=== PATIENT | male | born 1995 | race Caucasian/White ===

== ENCOUNTER 2018-05-06 07:51 | Emergency (ER) | payer BC, OTHER ==
--- NOTE | 2018-05-06 08:56 | ED ---
General Adult HPI - General Chief complaint: ENT Stated complaint: fb in throat Time Seen by Provider: 05/06/18 08:16 Source: patient, RN notes reviewed Mode of arrival: ambulatory Limitations: no limitations - History of Present Illness Initial comments: Patient is 23-year-old male presenting to the emergency room today with chief complaint of a sore throat over the last 3 days. Patient does admit that hurts when he swallows. Patient does admit to some congestion and rhinorrhea. Denies any cough. Denies any known fever. Denies any other complaints. Patient denies any recent fever, chills, shortness of breath, chest pain, back pain, abdominal pain, nausea or vomiting, numbness or tingling, headaches or visual changes, or any other complaints. - Related Data Previous Rx's Medication Instructions Recorded Amoxicillin 500 mg PO Q8H 10 Days day 05/06/18 Allergies Allergy/AdvReac Type Severity Reaction Status Date / Time No Known Allergies Allergy Verified 05/06/18 08:29 Review of Systems ROS Statement: Those systems with pertinent positive or pertinent negative responses have been documented in the HPI. ROS Other: All systems not noted in ROS Statement are negative. Past Medical History Past Medical History: Eye Disorder Additional Past Medical History / Comment(s): HX HEART MURMUR -HAD OPEN HEART, JUVENILE POLYPOSIS History of Any Multi-Drug Resistant Organisms: None Reported Past Surgical History: Bowel Resection, Coronary Bypass/CABG Additional Past Surgical History / Comment(s): BOWEL RESECTION @ AGE 14- REMOVED LOWER PART OF COLON, OPEN HEART -HEART MURMUR Past Anesthesia/Blood Transfusion Reactions: No Reported Reaction Past Psychological History: ADD/ADHD Smoking Status: Current every day smoker Past Alcohol Use History: None Reported Past Drug Use History: Marijuana - Past Family History Brother(s) Additional Family Medical History / Comment(s): JUVENILE POLYPOSIS- ADD/ADHD Sister(s) Additional Family Medical History / Comment(s): JUVENILE POLYPOSIS Mother Additional Family Medical History / Comment(s): JUVENILE POLYPOSIS General Exam - General Exam Comments Initial Comments: General: The patient is awake and alert, in no distress, and does not appear acutely ill. Ears, nose, mouth and throat: There are moist mucous membranes and no oral lesions. Positive exudate to the posterior pharynx with 2+ tonsils. Uvula midline. Swallows without any difficulty. Neck: The neck is supple. Cardiovascular: There is a regular rate and rhythm. No murmur, rub or gallop is appreciated. Respiratory: Lungs are clear to auscultation, respirations are non-labored, breath sounds are equal. No wheezes, stridor, rales, or rhonchi. Musculoskeletal: Normal ROM, no tenderness. Neurological: A&O x 3. CN II-XII intact, There are no obvious motor or sensory deficits. Coordination appears grossly intact. Speech is normal. Skin: Skin is warm and dry and no rashes or lesions are noted. Psychiatric: Cooperative, appropriate mood & affect, normal judgment. Limitations: no limitations Course Vital Signs 05/06/18 07:56 Temperature 98.3 F Pulse Rate 90 Respiratory 18 Rate Blood Pressure 124/87 O2 Sat by Pulse 97 Oximetry Medical Decision Making - Medical Decision Making Patient does have positive exudate with 2+ tonsils. Uvula midline. Patient swallows without difficulty. Patient will be treated for a strep infection started on amoxicillin. Advised follow-up over the next 2 days return if any symptoms increase or worsen. Disposition Clinical Impression: Acute pharyngitis Disposition: HOME SELF-CARE Condition: Good Instructions: Pharyngitis (ED) Additional Instructions: Please use medication as discussed. Please follow-up with family doctor in the next 2 days of symptoms have not improved. Please return to emergency room if the symptoms increase or worsen or for any other concerns. Prescriptions: Amoxicillin 500 mg PO Q8H 10 Days day Is patient prescribed a controlled substance at d/c from ED?: No Referrals: None,Stated [Primary Care Provider] - 1-2 days Time of Disposition: 08:54
[2018-05-06 09:09] VITALS: BP 125/83; PULSE 85; RESP 20; TEMP 97.3
== END 2018-05-06 09:05 | disposition home or self-care (01) ==
LOC: EC 07:51
DX: J02.9 Acute pharyngitis, unspecified (principal); F17.200 Nicotine dependence, unspecified, uncomplicated; Z95.1 Presence of aortocoronary bypass graft
CPT/HCPCS: 99282

== ENCOUNTER 2021-11-04 08:15 | Emergency (ER) | payer OTHER ==
[2021-11-04 08:21] VITALS: BP 128/87; RESP 16; TEMP 98
[2021-11-04] MEDS ORDERED: LIDOCAINE 1% INJ 10MG/ML (5 ML VIAL-PF) SQ ONE (08:30)
[2021-11-04] MEDS ORDERED: ACET/COD 300 MG/30 MG STARTER PACK 6 TAB BTL PO STA (08:50)
[2021-11-04] MEDS ORDERED: PENICILLIN G BENZATHINE 1,200,000 UNIT/2 ML SYRINGE IM STA (08:52)
--- NOTE | 2021-11-04 08:52 | ED ---
General Adult HPI - General Chief complaint: Dental/Oral Stated complaint: dental pain, facial swelling Time Seen by Provider: 11/04/21 08:24 Source: patient, RN notes reviewed Mode of arrival: ambulatory Limitations: no limitations - History of Present Illness Initial comments: Patient is a pleasant 26-year-old male presenting to the emergency department with concern for ental problem. Patient had mild symptoms yesterday, worsening swelling. Patient does have discomfort. Left upper tooth. Patient does have known tooth problem. Patient now has some swelling. No fever. No dyspnea. Patient is tolerating oral intake. - Related Data Previous Rx's Medication Instructions Recorded Amoxicillin 500 mg PO Q8H 10 Days day 05/06/18 Penicillin V Potassium [Pen Vee K] 500 mg PO QID #40 tablet 11/04/21 Allergies Allergy/AdvReac Type Severity Reaction Status Date / Time No Known Allergies Allergy Verified 11/04/21 08:21 Review of Systems ROS Statement: Those systems with pertinent positive or pertinent negative responses have been documented in the HPI. ROS Other: All systems not noted in ROS Statement are negative. Constitutional: Denies: fever Eyes: Denies: eye pain ENT: Reports: dental pain Respiratory: Denies: cough Cardiovascular: Denies: chest pain Endocrine: Denies: fatigue Gastrointestinal: Denies: abdominal pain Genitourinary: Denies: urgency Past Medical History Past Medical History: Eye Disorder Additional Past Medical History / Comment(s): HX HEART MURMUR -HAD OPEN HEART, JUVENILE POLYPOSIS History of Any Multi-Drug Resistant Organisms: None Reported Past Surgical History: Bowel Resection, Coronary Bypass/CABG Additional Past Surgical History / Comment(s): BOWEL RESECTION @ AGE 14- REMOVED LOWER PART OF COLON, OPEN HEART -HEART MURMUR Past Anesthesia/Blood Transfusion Reactions: No Reported Reaction Past Psychological History: ADD/ADHD Smoking Status: Current every day smoker Past Alcohol Use History: None Reported Past Drug Use History: Marijuana - Past Family History Brother(s) Additional Family Medical History / Comment(s): JUVENILE POLYPOSIS- ADD/ADHD Sister(s) Additional Family Medical History / Comment(s): JUVENILE POLYPOSIS Mother Additional Family Medical History / Comment(s): JUVENILE POLYPOSIS General Exam Limitations: no limitations General appearance: alert, in no apparent distress Head exam: Present: normocephalic Eye exam: Present: normal appearance ENT exam: Present: other (Mild left maxillary swelling. Patient does have a missing tooth with minimal remanence second premolar. Left upper. There is pre-apical abscess.) Respiratory exam: Present: normal lung sounds bilaterally Cardiovascular Exam: Present: regular rate GI/Abdominal exam: Present: soft. Absent: tenderness Neurological exam: Present: alert Psychiatric exam: Present: normal affect, normal mood Skin exam: Present: normal color Course Vital Signs 11/04/21 08:18 Temperature 98 F Pulse Rate 125 H Respiratory 16 Rate Blood Pressure 128/87 O2 Sat by Pulse 99 Oximetry Procedures - Incision & Drainage Consent Obtained: verbal consent Site: oral Anesthetic Used: lidocaine 1% Amount (mLs): 2 Scalpel Used: #11 I&D Drainage Obtained: Pus Patient Tolerated Procedure: well, no complications Disposition Clinical Impression: Dental abscess Disposition: HOME SELF-CARE Condition: Stable Instructions (If sedation given, give patient instructions): Dental Abscess (ED) Additional Instructions: Please follow-up with your dentist in the next day or 2 for recheck. Please also follow-up with primary care physician, numbers provided for options. Return for increased swelling, fever, not tolerating fluids, difficulty breathing, worsening symptoms or other concerns. Perception for antibiotics has been sent to pharmacy. Prescriptions: Penicillin V Potassium [Pen Vee K] 500 mg PO QID #40 tablet Is patient prescribed a controlled substance at d/c from ED?: No Referrals: Lamonte Nicole MD [REFERRING] - 1-2 days Taran Mcknight MD [STAFF PHYSICIAN] - 1-2 days Time of Disposition: 08:51
[2021-11-04 08:58] VITALS: PULSE 99
== END 2021-11-04 08:59 | disposition home or self-care (01) ==
LOC: EC 08:15
DX: K04.7 Periapical abscess without sinus (principal); F17.200 Nicotine dependence, unspecified, uncomplicated
CPT/HCPCS: 99282; 41800; J2001